=== PATIENT | female | born 1960 | race Hispanic/Latino ===

== ENCOUNTER 2017-10-24 13:02 | Emergency (ER) | payer OTHER ==
[2017-10-24 14:59] LABS: Absolute Lymphocytes (CBC) 1.3 K/uL (0.7-4.9); Absolute Neutrophil 6.9 K/uL (1.8-8.0); Basophils % 0.5 % (0-1.3); Eosinophils % 1.9 % (0-4.4); Hematocrit 39.7 % (36.0-45.0); Lymphocytes % 13.8 % (15.3-44.8); MCV 89.3 fL (80-100); MPV 7.3 fL (7.6-11.3); Monocytes % 10.8 % (3.3-12.3); RBC Red Blood Cell Count 4.45 M/uL (3.86-4.86)
--- NOTE | 2017-10-24 14:59 | RAD REPORT ---
EXAM DESCRIPTION: RAD - Foot Right 2 View - 10/24/2017 2:32 pm CLINICAL HISTORY: Open wound plantar surface of the foot COMPARISON: None. FINDINGS: No fracture, dislocation or periosteal reaction. No acute or destructive bone process. No plantar spur. No air or foreign body in the soft tissues. IMPRESSION: Negative right foot for acute bone or joint finding. No air or foreign body in the soft tissues.
[2017-10-24 15:03] LABS: Protime INR 1.01
[2017-10-24 15:04] LABS: Potassium 3.3 mEq/L (3.6-5.0)
[2017-10-24] MEDS ORDERED: levoFLOXacin 750 MG TAB ONE (15:36)
[2017-10-24] MEDS ORDERED: CLINDAMYCIN 900MG/D5W 900 MG/50 ML BAG IV ONE (15:37)
[2017-10-24] MEDS ORDERED: INSULIN -REGULAR HUMAN 50 UNIT/0.5 ML ML ONE (15:37)
[2017-10-24] MEDS ORDERED: NA CHLORIDE 0.9% 1,000 ML ONE (15:37)
--- NOTE | 2017-10-24 16:02 | ER ---
Nurse's Notes [facility] Name: Loyda Brooks Age: 57 yrs Sex: Female : 1960 Arrival Date: 10/24/2017 Time: 13:09 Bed 14 Private MD: Diagnosis: Cellulitis of right lower limb Presentation: 10/24 13:38 Presenting complaint: Patient states: "I am diabetic and I believe I got glass or lk1 something in my foot. I tried to get it out the last two days. Yesterday blood and pus came out. Now all my toes are black (right foot) and it hurts up into my groin.". Transition of care: patient was not received from another setting of care. Onset of symptoms was October 22, 2017. Care prior to arrival: None. 13:38 Method Of Arrival: Ambulatory lk1 13:38 Acuity: ALDO 3 lk1 Triage Assessment: 13:41 General: Appears in no apparent distress. Behavior is calm, cooperative, appropriate lk1 for age. Pain: Complains of pain in right leg Pain currently is 10 out of 10 on a pain scale. Historical: - Allergies: 13:41 No Known Allergies; lk1 - PMHx: 13:41 Diabetes - IDDM; Rheumatoid Arthritis; Anxiety; Depression; insomnia; High Cholesterol; lk1 - PSHx: 13:41 breast augmentation; lk1 - Immunization history:: Adult Immunizations up to date. - Social history:: Smoking status: Patient/guardian denies using tobacco. Screenin:10 Abuse screen: Denies threats or abuse. Denies injuries from another. Nutritional ch screening: No deficits noted. Tuberculosis screening: No symptoms or risk factors identified. Fall Risk None identified. Assessment: 14:45 Reassessment: Patient appears in no apparent distress at this time. Patient and/or ch family updated on plan of care and expected duration. Pain level reassessed. Patient is alert, oriented x 3, equal unlabored respirations, skin warm/dry/pink. General: Appears in no apparent distress. comfortable, Behavior is calm, cooperative, appropriate for age. Neuro: No deficits noted. Respiratory: Airway is patent Respiratory effort is even, unlabored, Breath sounds are clear bilaterally. GI: No signs and/or symptoms were reported involving the gastrointestinal system. Derm: Skin Skin is pink, warm \\T\\ dry. Skin temperature is warm hot pt has a wound to the bottom of her R foot, with redness around entire foot, and streaking up the leg. 14:45 Musculoskeletal: Circulation, motion, and sensation intact. Capillary refill < 3 ch seconds, in bilateral fingers. toes. 16:10 Reassessment: Patient appears in no apparent distress at this time. Patient and/or ch family updated on plan of care and expected duration. Pain level reassessed. Patient is alert, oriented x 3, equal unlabored respirations, skin warm/dry/pink. Patient states feeling better. Patient states symptoms have improved. Vital Signs: 13:42 BP 142 / 86; Pulse 98; Resp 15; Temp 97.8(TE); Pulse Ox 95% on R/A; Weight 65.77 kg lk1 (R); Height 5 ft. 4 in. (162.56 cm) (R); Pain 10/10; 15:00 BP 161 / 101; Pulse 74; Resp 16; Temp 98.2; Pulse Ox 99% on R/A; Pain 2/10; ch 16:17 BP 132 / 78; Pulse 85; Resp 15; Temp 98.9; Pulse Ox 99% on R/A; Pain 2/10; ch 13:42 Body Mass Index 24.89 (65.77 kg, 162.56 cm) lk1 ED Course: 13:09 Patient arrived in ED. mr 13:40 Triage completed. lk1 13:43 Arm band placed on right wrist. lk1 13:49 Melecio Luna PA is PHCP. cp 13:49 Cliff Springer MD is Attending Physician. cp 14:19 Amberly Preston, MIMI is Primary Nurse. ch 14:32 XRAY Foot RIGHT 2 View In Process Unspecified. EDMS 14:32 X-ray completed. Portable x-ray completed in exam room. kw1 14:45 No apparent distress. Resting quietly. ch 14:45 Patient has correct armband on for positive identification. Placed in gown. Bed in low ch position. Call light in reach. Side rails up X 1. Pulse ox on. NIBP on. 14:45 Inserted saline lock: 20 gauge in right forearm, using aseptic technique. ch 16:18 No provider procedures requiring assistance completed. IV discontinued, intact, ch bleeding controlled, No redness/swelling at site. Pressure dressing applied. Administered Medications: 15:15 Drug: Clindamycin 900 mg Route: IVPB; Infused Over: 30 mins; Site: right antecubital; 16:16 Follow up: IV Status: Completed infusion; IV Intake: 50ml 15:15 Drug: LevaQUIN 750 mg Route: PO; 16:16 Follow up: Response: No adverse reaction; Marked relief of symptoms 15:15 Drug: NS 0.9% 1000 ml Route: IV; Rate: 1 bolus; Site: right antecubital; 16:15 Follow up: IV Status: Completed infusion; IV Intake: 1000ml 15:30 Drug: Insulin Regular Human 10 units {Co-Signature: rs2 (Thu Maria).} Route: IVP; Site: right antecubital; 16:16 Follow up: Response: No adverse reaction; Blood sugar is lowered 16:15 Drug: Potassium Effervescent Tablet 25 mEq Route: PO; 16:16 Follow up: Response: No adverse reaction; Marked relief of symptoms Point of Care Testing: Blood Glucose: 16:10 Blood Glucose: 202 mg/dL; Ranges: Intake: 16:15 IV: 1000ml; Total: 1000ml. 16:16 IV: 50ml; Total: 1050ml. Outcome: 16:01 Discharge ordered by MD. 16:18 Discharged to home ambulatory, with family. 16:18 Condition: stable 16:18 Discharge instructions given to patient, Instructed on discharge instructions, follow up and referral plans. no drinking with medication, medication usage, Demonstrated understanding of instructions, follow-up care, medications, Prescriptions given X 3. 17:02 Patient left the ED. Addendum: 10/27/2017 10:37 Addendum: Culture Results: Positive urine culture. No further action required. Bacteria s s sensitive to prescribed antibiotic. Signatures: Dispatcher [employer] EDMS Amberly Preston RN RN ch Rivera, Maria mr Smirch, Shelby, RN RN ss Page, Corey, PA PA cp Kluge, Leah, RN RN lk1 Samantha Fortune1 Thu Maria rs2 Corrections: (The following items were deleted from the chart) 10/24 16:18 16:10 BP 161 / 101; Pulse 74bpm; Resp 16bpm; Pulse Ox 99% RA; Temp 98.2F; Pain 2/10; ch 16: 15:00 No provider procedures requiring assistance completed. [facility] 16: 15:00 IV discontinued, intact, bleeding controlled, No redness/swelling at site. Pressure dressing applied, ch
--- NOTE | 2017-10-24 16:02 | EDPHYS ---
Physician Documentation [facility] Name: Loyda Brooks Age: 57 yrs Sex: Female : 1960 Arrival Date: 10/24/2017 Time: 13:09 Bed 14 Private MD: ED Physician Cliff Springer HPI: 10/24 14:30 This 57 yrs old Female presents to ER via Ambulatory with complaints of Toe cp Discloration. 14:30 Onset: The symptoms/episode began/occurred 2 day(s) ago. cp 14:30 Associated signs and symptoms: Pertinent negatives: abdominal pain, chest pain, fever, cp shortness of breath. Patient reports she attempted to remove possible piece of glass from ball of right foot several days ago and for past 2 days has noticed redness of toes and foot, swelling. Historical: - Allergies: 13:41 No Known Allergies; lk1 - PMHx: 13:41 Diabetes - IDDM; Rheumatoid Arthritis; Anxiety; Depression; insomnia; High Cholesterol; lk1 - PSHx: 13:41 breast augmentation; lk1 - Immunization history:: Adult Immunizations up to date. - Social history:: Smoking status: Patient/guardian denies using tobacco. ROS: 14:35 Constitutional: Negative for body aches, chills, fever, poor PO intake. cp 14:35 Eyes: Negative for injury, pain, redness, and discharge. cp 14:35 Cardiovascular: Negative for chest pain, palpitations. 14:35 Respiratory: Negative for cough, shortness of breath, wheezing. 14:35 Abdomen/GI: Negative for abdominal pain, nausea, vomiting, and diarrhea. 14:35 : Negative for urinary symptoms. 14:35 Skin: Positive for cellulitis, of the right foot. 14:35 All other systems are negative. Exam: 14:45 Constitutional: The patient appears in no acute distress, alert, awake, non-toxic, well cp developed, well nourished. 14:45 Head/Face: Normocephalic, atraumatic. Eyes: Pupils equal round and reactive to light, cp extra-ocular motions intact. Lids and lashes normal. Conjunctiva and sclera are non-icteric and not injected. Cornea within normal limits. Periorbital areas with no swelling, redness, or edema. ENT: Nares patent. No nasal discharge, no septal abnormalities noted. Tympanic membranes are normal and external auditory canals are clear. Oropharynx with no redness, swelling, or masses, exudates, or evidence of obstruction, uvula midline. Mucous membranes moist. Chest/axilla: Normal chest wall appearance and motion. Nontender with no deformity. No lesions are appreciated. Cardiovascular: Regular rate and rhythm with a normal S1 and S2. No gallops, murmurs, or rubs. Normal PMI, no JVD. No pulse deficits. Respiratory: Lungs have equal breath sounds bilaterally, clear to auscultation and percussion. No rales, rhonchi or wheezes noted. No increased work of breathing, no retractions or nasal flaring. Abdomen/GI: Soft, non-tender, with normal bowel sounds. No distension or tympany. No guarding or rebound. No evidence of tenderness throughout. 14:45 Skin: cellulitis, that is moderate, well demarcated, on the right foot, superficial open wound noted ball of right foot. Vital Signs: 13:42 BP 142 / 86; Pulse 98; Resp 15; Temp 97.8(TE); Pulse Ox 95% on R/A; Weight 65.77 kg lk1 (R); Height 5 ft. 4 in. (162.56 cm) (R); Pain 10/10; 15:00 BP 161 / 101; Pulse 74; Resp 16; Temp 98.2; Pulse Ox 99% on R/A; Pain 2/10; ch 16:17 BP 132 / 78; Pulse 85; Resp 15; Temp 98.9; Pulse Ox 99% on R/A; Pain 2/10; ch 13:42 Body Mass Index 24.89 (65.77 kg, 162.56 cm) lk1 MDM: 13:49 Patient medically screened. cp 16:00 Data reviewed: vital signs, nurses notes, lab test result(s), radiologic studies, plain cp films, and as a result, I will discharge patient. 16:00 Test interpretation: by ED physician or midlevel provider: plain radiologic studies. cp Counseling: I had a detailed discussion with the patient and/or guardian regarding: the historical points, exam findings, and any diagnostic results supporting the discharge/admit diagnosis, lab results, radiology results, the need for outpatient follow up, a family practitioner, to return to the emergency department if symptoms worsen or persist or if there are any questions or concerns that arise at home. 10/24 14:17 Order name: CBC with Diff; Complete Time: 15:01 10/24 14:17 Order name: BMP; Complete Time: 15:11 10/24 16:02 Interpretation: Normal except: K 3.3; CL 95; GLUC 374; GFR 69. cp 10/24 14:17 Order name: Blood Culture Adult (2) cp 10/24 14:17 Order name: Wound Culture cp 10/24 14:17 Order name: PT-INR; Complete Time: 15:11 cp 10/24 14:17 Order name: Ptt, Activated; Complete Time: 15:11 10/24 14:17 Order name: XRAY Foot RIGHT 2 View; Complete Time: 15:01 10/24 14:17 Order name: IV; Complete Time: 15:10 10/24 15:02 Order name: Wound dressing: please clean and dress wound, outline area of erythema; cp Complete Time: 16:07 Administered Medications: 15:15 Drug: Clindamycin 900 mg Route: IVPB; Infused Over: 30 mins; Site: right antecubital; ch 16:16 Follow up: IV Status: Completed infusion; IV Intake: 50ml ch 15:15 Drug: LevaQUIN 750 mg Route: PO; ch 16:16 Follow up: Response: No adverse reaction; Marked relief of symptoms ch 15:15 Drug: NS 0.9% 1000 ml Route: IV; Rate: 1 bolus; Site: right antecubital; ch 16:15 Follow up: IV Status: Completed infusion; IV Intake: 1000ml ch 15:30 Drug: Insulin Regular Human 10 units {Co-Signature: rs2 (Thu Maria).} Route: IVP; Site: right antecubital; 16:16 Follow up: Response: No adverse reaction; Blood sugar is lowered ch 16:15 Drug: Potassium Effervescent Tablet 25 mEq Route: PO; ch 16:16 Follow up: Response: No adverse reaction; Marked relief of symptoms ch Point of Care Testing: Blood Glucose: 16:10 Blood Glucose: 202 mg/dL; ch Ranges: Critical Glucose Levels:Adult <50 mg/dl or >400 mg/dl <40 mg/dl or >180 mg/dl Disposition: 17:11 Co-signature as Attending Physician, Cliff Springer MD. rn Disposition: 10/24/17 16:01 Discharged to Home. Impression: Cellulitis of right lower limb. - Condition is Stable. - Discharge Instructions: Cellulitis. - Prescriptions for Clindamycin HCl 300 mg Oral Capsule - take 1 capsule by ORAL route every 6 hours for 10 days; 40 capsule. Levaquin 750 mg Oral Tablet - take 1 tablet by ORAL route once daily for 10 days; 10 tablet. Tramadol 50 mg Oral Tablet - take 1 tablet by ORAL route every 8 hours as needed; 12 tablet. - Medication Reconciliation Form, Thank You Letter, Antibiotic Education, Prescription Opioid Use form. - Follow up: Private Physician; When: Tomorrow; Reason: Wound Recheck. - Problem is new. - Symptoms have improved. Signatures: Dispatcher [employer] Amberly Beltran, RN Cliff Bardales ch, MD MD rn Page, Corey, PA PA cp Kluge, Leah, RN RN lk1 Thu Maria rs2
== END 2017-10-24 17:02 | disposition home or self-care (01) ==
LOC: ER 13:02
DX: Z98.82 Breast implant status; E11.9 Type 2 diabetes mellitus without complications; L03.115 Cellulitis of right lower limb
CPT/HCPCS: 36415; 80048; 82962; 85025; 85610; 85730; 87040; 87070; 87077; 87186; 87205; 96361; 96365; 96375; 99284; J7030

== ENCOUNTER 2018-10-22 11:57 | Emergency (ER) | payer OTHER ==
[2018-10-22] MEDS ORDERED: MORPHINE 4 MG/ML SYR ONE (14:53)
[2018-10-22] MEDS ORDERED: NA CHLORIDE 0.9% 1,000 ML ONE (14:53)
[2018-10-22] MEDS ORDERED: ONDANSETRON 4 MG/2 ML VIAL ONE (14:53)
--- NOTE | 2018-10-22 15:30 | RAD REPORT ---
EXAM DESCRIPTION: CT - Spine Lumbar Wo Con - 10/22/2018 3:21 pm CLINICAL HISTORY: Radiculopathy. PAIN COMPARISON: No comparisons TECHNIQUE: Axial noncontrast CT imaging of the lumbar spine was performed with coronal and sagittal re-formatted images. All CT scans are performed using dose optimization technique as appropriate and may include automated exposure control or mA/KV adjustment according to patient size. FINDINGS: No acute lumbar spine fracture seen. No aggressive marrow pattern or malalignment. Paraspinal tissues are normal in thickness. No paraspinal abscess or hematoma seen. Mild degenerative anterolisthesis of L4 on 5 is seen with prominent facet hypertrophy bilaterally. Th ere is bulging of disc material noted and probable significant central spinal canal stenosis at this level. IMPRESSION: No acute lumbar spine finding is suspected. Central spinal canal stenosis is suspected at L4-5.
--- NOTE | 2018-10-22 15:46 | RAD REPORT ---
EXAM DESCRIPTION: RAD - Femur Left - 10/22/2018 3:38 pm CLINICAL HISTORY: PAIN COMPARISON: No comparisons FINDINGS: No bone or joint abnormality is detected.
--- NOTE | 2018-10-22 15:47 | RAD REPORT ---
EXAM DESCRIPTION: RAD - Foot Left 3 View - 10/22/2018 3:38 pm CLINICAL HISTORY: PAIN COMPARISON: No comparisons FINDINGS: Degenerative changes are present involving the second and third tarsal metatarsal joints. PIP joint of the fourth toe shows moderate degenerative change. No acute fracture or dislocation seen .
--- NOTE | 2018-10-22 15:47 | RAD REPORT ---
EXAM DESCRIPTION: RAD - Hip Left 2 View - 10/22/2018 3:38 pm CLINICAL HISTORY: PAIN COMPARISON: No comparisons FINDINGS: Mild arthritic changes involve the left hip. No fracture, dislocation or AVN.
--- NOTE | 2018-10-22 15:48 | RAD REPORT ---
EXAM DESCRIPTION: RAD - Pelvis - 10/22/2018 3:38 pm CLINICAL HISTORY: PAIN COMPARISON: No comparisons FINDINGS: Mild arthritic changes are present in both hips. No fracture or dislocation seen. No aggre ssive marrow lesion.
--- NOTE | 2018-10-22 16:05 | ER ---
Nurse's Notes [facility] Name: Loyda Brooks Age: 58 yrs Sex: Female : 1960 Arrival Date: 10/22/2018 Time: 12:00 Bed 24 Private MD: Diagnosis: Low back pain;Pain in right hip;Fall due to bumping against object;Spinal stenosis;Spinal stenosis, lumbar region;Type 2 diabetes mellitus;Urinary tract infection, site not specified Presentation: 10/22 12:04 Presenting complaint: Patient states: "I fell off my mother's bed about 10 days ago". aa5 Pt c/o lower back pain and left hip pain. Transition of care: patient was not received from another setting of care. Onset of symptoms was September 2018. Risk Assessment: Do you want to hurt yourself or someone else? Patient reports no desire to harm self or others. Initial Sepsis Screen: Does the patient meet any 2 criteria? No. Patient's initial sepsis screen is negative. Does the patient have a suspected source of infection? No. Patient's initial sepsis screen is negative. Care prior to arrival: None. 12:04 Method Of Arrival: Ambulatory aa5 12:04 Acuity: ALDO 4 aa5 Triage Assessment: 12:26 General: Appears in no apparent distress. Behavior is calm, cooperative. ls4 Musculoskeletal: Circulation, motion, and sensation intact. Capillary refill < 3 seconds, Range of motion:. Historical: - Allergies: 12:05 No Known Allergies; aa5 - PMHx: 12:05 Anxiety; Depression; Diabetes - IDDM; High Cholesterol; insomnia; Rheumatoid Arthritis; aa5 - PSHx: 12:05 breast augmentation; aa5 - Immunization history:: Flu vaccine is up to date. - Social history:: Smoking status: Patient uses tobacco products, 1-2 cigarettes a day. - Ebola Screening: : No symptoms or risks identified at this time. - Family history:: not pertinent. Screenin:25 Abuse screen: Denies threats or abuse. Denies injuries from another. Nutritional ls4 screening: No deficits noted. Tuberculosis screening: No symptoms or risk factors identified. Fall Risk None identified. Assessment: 12:53 Pain: Complains of pain in left hip Pain currently is 10 out of 10 on a pain scale. ls4 Neuro: Level of Consciousness is awake, alert, Oriented to person, place, time, situation, Reports paresthesias in right foot, left foot, right leg and left leg chronic. Cardiovascular: Denies chest pain, diaphoresis, fatigue, lightheadedness, nausea, palpitations, Capillary refill < 3 seconds. Respiratory: Airway is patent Respiratory effort is even, unlabored. Musculoskeletal: Reports pain in left iliac crest and left hip. 15:22 Reassessment: patient sent to ct scan. mg2 16:10 Reassessment: patient for discharge after the blood test results are back. mg2 17:28 Reassessment: Patient appears in no apparent distress at this time. mg2 Vital Signs: 12:06 BP 147 / 88; Pulse 93; Resp 16 S; Temp 98.4(TE); Pulse Ox 98% on R/A; Weight 68.04 kg aa5 (R); Height 5 ft. 4 in. (162.56 cm) (R); Pain 10/10; 15:00 BP 133 / 78; Pulse 89; Resp 18; Pulse Ox 100% on R/A; Pain 4/10; mg2 17:28 BP 140 / 78; Pulse 80; Resp 18; Pulse Ox 100% on R/A; Pain 2/10; mg2 12:06 Body Mass Index 25.75 (68.04 kg, 162.56 cm) aa5 ED Course: 12:00 Patient arrived in ED. mr 12:04 Arm band placed on. aa5 12:05 Triage completed. aa5 12:24 Libby Tapia, RN is Primary Nurse. ls4 12:25 Patient has correct armband on for positive identification. Bed in low position. Call ls4 light in reach. Side rails up X 1. 12:25 No provider procedures requiring assistance completed. Inserted saline lock: 22 gauge ls4 in right forearm, using aseptic technique. 13:16 Melecio Dubois MD is Attending Physician. danie 14:54 Radiology exam delayed due to nurse in the room at this time. vr 15:22 CT Lumbar Spine Wo Con In Process Unspecified. EDMS 15:39 XRAY Pelvis In Process Unspecified. EDMS 15:39 Hip Left 2 View XRAY In Process Unspecified. EDMS 15:39 Femur Left XRAY In Process Unspecified. EDMS 15:39 Foot Left 3 View In Process Unspecified. EDMS 17:28 IV discontinued, intact, bleeding controlled, No redness/swelling at site. Pressure mg2 dressing applied. Administered Medications: 15:04 Drug: NS 0.9% 1000 ml Route: IV; Rate: 1 bolus; Site: right forearm; ls4 15:04 Drug: morphine 4 mg Route: IVP; Site: right forearm; ls4 16:11 Follow up: Response: No adverse reaction; Marked relief of symptoms mg2 15:04 Drug: Zofran 4 mg Route: IVP; Site: right forearm; ls4 16:11 Follow up: Response: No adverse reaction; Marked relief of symptoms mg2 17:02 Drug: Cipro 500 mg Route: PO; mg2 17:27 Follow up: Response: No adverse reaction; Medication administered at discharge. mg2 17:03 Drug: Rocephin - (cefTRIAXone) 1 grams Route: IVPB; Infused Over: 30 mins; Site: right mg2 forearm; 17:27 Follow up: Response: No adverse reaction; Medication administered at discharge.; IV mg2 Status: Completed infusion Outcome: 16:04 Discharge ordered by MD. helton 17:29 Discharged to home via wheelchair. mg2 17:29 Condition: stable 17:29 Discharge instructions given to family, Instructed on discharge instructions, follow up and referral plans. medication usage, Demonstrated understanding of instructions, follow-up care, medications, Prescriptions given X 4. 17:30 Patient left the ED. mg2 Addendum: 10/24/2018 08:57 Addendum: Culture Results: Positive urine culture. No further action required. Bacteria s s sensitive to prescribed antibiotic. Signatures: Dispatcher [employer] EDAR Melecio Dubois MD MD cha Rivera, Mary mr CastellonMichelle, RN RN aa5 Rosalia Godoy RN RN ss Davis, Victoria vr Gardose, Michele, RN RN mg2 Libby Tapia RN RN ls4 Corrections: (The following items were deleted from the chart) 10/22 17:28 12:25 Inserted ls4 mg2
--- NOTE | 2018-10-22 16:05 | EDPHYS ---
Physician Documentation [facility] Name: Loyda Brooks Age: 58 yrs Sex: Female : 1960 Arrival Date: 10/22/2018 Time: 12:00 Bed 24 Private MD: ED Physician Melecio Dubois HPI: 10/22 14:36 This 58 yrs old Female presents to ER via Ambulatory with complaints of Back danie Pain. 14:36 The patient presents with pain that is acute. The symptoms are located in the low back, danie L1, L2, L3, L4 and L5. Onset: The symptoms/episode began/occurred 10 day(s) ago. The pain does not radiate. Associated signs and symptoms: The patient has no apparent associated signs or symptoms. Modifying factors: The patient symptoms are alleviated by remaining still, the patient symptoms are aggravated by any movement. Severity of symptoms: At their worst the symptoms were mild, moderate, in the emergency department the symptoms are unchanged. Historical: - Allergies: 12:05 No Known Allergies; aa5 - PMHx: 12:05 Anxiety; Depression; Diabetes - IDDM; High Cholesterol; insomnia; Rheumatoid Arthritis; aa5 - PSHx: 12:05 breast augmentation; aa5 - Immunization history:: Flu vaccine is up to date. - Social history:: Smoking status: Patient uses tobacco products, 1-2 cigarettes a day. - Ebola Screening: : No symptoms or risks identified at this time. - Family history:: not pertinent. ROS: 14:36 Constitutional: Negative for fever, chills, and weight loss, Eyes: Negative for injury, danie pain, redness, and discharge, ENT: Negative for injury, pain, and discharge, Neck: Negative for injury, pain, and swelling, Cardiovascular: Negative for chest pain, palpitations, and edema, Respiratory: Negative for shortness of breath, cough, wheezing, and pleuritic chest pain, Abdomen/GI: Negative for abdominal pain, nausea, vomiting, diarrhea, and constipation, : Negative for injury, bleeding, discharge, and swelling, Skin: Negative for injury, rash, and discoloration, Neuro: Negative for headache, weakness, numbness, tingling, and seizure, Psych: Negative for depression, anxiety, suicide ideation, homicidal ideation, and hallucinations, Allergy/Immunology: Negative for hives, rash, and allergies, Endocrine: Negative for neck swelling, polydipsia, polyuria, polyphagia, and marked weight changes, Hematologic/Lymphatic: Negative for swollen nodes, abnormal bleeding, and unusual bruising. 14:36 Back: Positive for injury or acute deformity, pain at rest, pain with movement, of the left low back. Exam: 14:36 Constitutional: This is a well developed, well nourished patient who is awake, alert, danie and in no acute distress. Head/Face: Normocephalic, atraumatic. Eyes: Pupils equal round and reactive to light, extra-ocular motions intact. Lids and lashes normal. Conjunctiva and sclera are non-icteric and not injected. Cornea within normal limits. Periorbital areas with no swelling, redness, or edema. ENT: Nares patent. No nasal discharge, no septal abnormalities noted. Tympanic membranes are normal and external auditory canals are clear. Oropharynx with no redness, swelling, or masses, exudates, or evidence of obstruction, uvula midline. Mucous membranes moist. Neck: Trachea midline, no thyromegaly or masses palpated, and no cervical lymphadenopathy. Supple, full range of motion without nuchal rigidity, or vertebral point tenderness. No Meningismus. Chest/axilla: Normal chest wall appearance and motion. Nontender with no deformity. No lesions are appreciated. Cardiovascular: Regular rate and rhythm with a normal S1 and S2. No gallops, murmurs, or rubs. Normal PMI, no JVD. No pulse deficits. Respiratory: Lungs have equal breath sounds bilaterally, clear to auscultation and percussion. No rales, rhonchi or wheezes noted. No increased work of breathing, no retractions or nasal flaring. Abdomen/GI: Soft, non-tender, with normal bowel sounds. No distension or tympany. No guarding or rebound. No evidence of tenderness throughout. Female : Normal external genitalia. Skin: Warm, dry with normal turgor. Normal color with no rashes, no lesions, and no evidence of cellulitis. Neuro: Awake and alert, GCS 15, oriented to person, place, time, and situation. Cranial nerves II-XII grossly intact. Motor strength 5/5 in all extremities. Sensory grossly intact. Cerebellar exam normal. Normal gait. Psych: Awake, alert, with orientation to person, place and time. Behavior, mood, and affect are within normal limits. 14:36 Back: ROM is painful, normal spinal alignment noted, CVA tenderness, is absent, vertebral tenderness, is appreciated at L1, L2, L3, L4 and L5, muscle spasm, is appreciated in the left low back. Vital Signs: 12:06 BP 147 / 88; Pulse 93; Resp 16 S; Temp 98.4(TE); Pulse Ox 98% on R/A; Weight 68.04 kg aa5 (R); Height 5 ft. 4 in. (162.56 cm) (R); Pain 10/10; 15:00 BP 133 / 78; Pulse 89; Resp 18; Pulse Ox 100% on R/A; Pain 4/10; mg2 17:28 BP 140 / 78; Pulse 80; Resp 18; Pulse Ox 100% on R/A; Pain 2/10; mg2 12:06 Body Mass Index 25.75 (68.04 kg, 162.56 cm) aa5 MDM: 13:16 Patient medically screened. [facility] 14:38 Data reviewed: vital signs, nurses notes, lab test result(s), EKG, radiologic studies, [facility] CT scan, plain films. 10/22 14:35 Order name: Basic Metabolic Panel [facility] 10/22 14:35 Order name: CBC with Diff [facility] 10/22 14:35 Order name: Creatinine for Radiology; Complete Time: 15:59 [facility] 10/22 14:35 Order name: Type And Screen [facility] 10/22 14:35 Order name: Basic Metabolic Panel; Complete Time: 15:59 [facility] 10/22 16:34 Order name: Urine Culture [facility] 10/22 14:35 Order name: XRAY Pelvis; Complete Time: 15:59 [facility] 10/22 14:35 Order name: Hip Left 2 View XRAY; Complete Time: 15:59 [facility] 10/22 14:35 Order name: Femur Left XRAY; Complete Time: 15:59 [facility] 10/22 14:35 Order name: CT Lumbar Spine Wo Con; Complete Time: 15:36 [facility] 10/22 15:34 Order name: Foot Left 3 View; Complete Time: 15:59 [facility] 10/22 16:35 Order name: CBC Smear Scan [facility] 10/22 16:47 Order name: Urine Dipstick--Ancillary (enter results) 10/22 16:47 Order name: Urine --Ancillary (enter results) 10/22 14:35 Order name: Labs collected and sent; Complete Time: 15:07 [facility] 10/22 16:02 Order name: Urine Dipstick-Ancillary (obtain specimen); Complete Time: 17:00 [facility] Administered Medications: 15:04 Drug: NS 0.9% 1000 ml Route: IV; Rate: 1 bolus; Site: right forearm; ls4 15:04 Drug: morphine 4 mg Route: IVP; Site: right forearm; ls4 16:11 Follow up: Response: No adverse reaction; Marked relief of symptoms mg2 15:04 Drug: Zofran 4 mg Route: IVP; Site: right forearm; ls4 16:11 Follow up: Response: No adverse reaction; Marked relief of symptoms mg2 17:02 Drug: Cipro 500 mg Route: PO; mg2 17:27 Follow up: Response: No adverse reaction; Medication administered at discharge. mg2 17:03 Drug: Rocephin - (cefTRIAXone) 1 grams Route: IVPB; Infused Over: 30 mins; Site: right mg2 forearm; 17:27 Follow up: Response: No adverse reaction; Medication administered at discharge.; IV mg2 Status: Completed infusion Disposition: 10/22/18 16:04 Discharged to Home. Impression: Low back pain, Pain in right hip, Fall due to bumping against object, Spinal stenosis, Spinal stenosis, lumbar region, Type 2 diabetes mellitus, Urinary tract infection, site not specified. - Condition is Stable. - Discharge Instructions: Back Pain, Adult, Dysuria, Musculoskeletal Pain, Urinary Tract Infection, Adult, Back Injury Prevention, [id number], Urinary Tract Infection, Adult, Xvej-to-[id number], Back Pain, Adult, Xqlk-qm-[id number], Fall Prevention in the Home, Gngw-uf-[id number], Hip Pain. - Prescriptions for Skelaxin 800 mg Oral Tablet - take 1 tablet by ORAL route every 6 hours As needed; 28 tablet. Tylenol- Codeine #3 300-30 mg Oral Tablet - take 2 tablets by ORAL route every 6 hours As needed; 26 tablet. Motrin IB 200 mg Oral Tablet - take 2 tablet by ORAL route every 6 hours As needed as needed with food; 30 tablet. Cipro 250 mg Oral Tablet - take 1 tablet by ORAL route every 12 hours; 14 tablet. - Medication Reconciliation Form, Thank You Letter, Antibiotic Education, Prescription Opioid Use form. - Follow up: Private Physician; When: 2 - 3 days; Reason: Recheck today's complaints, Continuance of care, Re-evaluation by your physician. - Problem is new. - Symptoms have improved. Signatures: Dispatcher [employer] Melecio Maria MD MD cha Calderon, Audri, RN RN aa5 Bashir Falcon RN RN mg2 Libby Tapia RN RN ls4 Corrections: (The following items were deleted from the chart) 16:07 16:04 10/22/2018 16:04 Discharged to Home. Impression: Low back pain; Pain in right danie hip; Fall due to bumping against object; Spinal stenosis; Spinal stenosis, lumbar region. Condition is Stable. Forms are Medication Reconciliation Form, Thank You Letter, Antibiotic Education, Prescription Opioid Use. Follow up: Private Physician; When: 2 - 3 days; Reason: Recheck today's complaints, Continuance of care, Re-evaluation by your physician. Problem is new. Symptoms have improved. [facility] 16:36 16:07 10/22/2018 16:04 Discharged to Home. Impression: Low back pain; Pain in right danie hip; Fall due to bumping against object; Spinal stenosis; Spinal stenosis, lumbar region; Type 2 diabetes mellitus. Condition is Stable. Discharge Instructions: Back Pain, Adult, Musculoskeletal Pain, Back Injury Prevention, [id number], Back Pain, Adult, Vngo-wz-Ozzx, Fall Prevention in the Home, Uftk-[id number]-Yyas, Hip Pain. Prescriptions for Skelaxin 800 mg Oral Tablet - take 1 tablet by ORAL route every 6 hours As needed; 28 tablet, Tylenol-Codeine #3 300-30 mg Oral Tablet - take 2 tablets by ORAL route every 6 hours As needed; 26 tablet, Motrin IB 200 mg Oral Tablet - take 2 tablet by ORAL route every 6 hours As needed as needed with food; 30 tablet. and Forms are Medication Reconciliation Form, Thank You Letter, Antibiotic Education, Prescription Opioid Use. Follow up: Private Physician; When: 2 - 3 days; Reason: Recheck today's complaints, Continuance of care, Re-evaluation by your physician. Problem is new. Symptoms have improved. [facility] 17:30 16:36 10/22/2018 16:04 Discharged to Home. Impression: Low back pain; Pain in right mg2 hip; Fall due to bumping against object; Spinal stenosis; Spinal stenosis, lumbar region; Type 2 diabetes mellitus; Urinary tract infection, site not specified. Condition is Stable. Discharge Instructions: Back Pain, Adult, Musculoskeletal Pain, Back Injury Prevention, Ymea-im-Ryzt, Back Pain, Adult, Jtmp-[id number]-Yvig, Fall Prevention in the Home, Vhfm-ki-[id number], Hip Pain. Prescriptions for Skelaxin 800 mg Oral Tablet - take 1 tablet by ORAL route every 6 hours As needed; 28 tablet, Tylenol-Codeine #3 300-30 mg Oral Tablet - take 2 tablets by ORAL route every 6 hours As needed; 26 tablet, Motrin IB 200 mg Oral Tablet - take 2 tablet by ORAL route every 6 hours As needed as needed with food; 30 tablet. and Forms are Medication Reconciliation Form, Thank You Letter, Antibiotic Education, Prescription Opioid Use. Follow up: Private Physician; When: 2 - 3 days; Reason: Recheck today's complaints, Continuance of care, Re-evaluation by your physician. Problem is new. Symptoms have improved. danie
[2018-10-22 16:31] LABS: Absolute Lymphocytes (CBC) 2.4 K/uL (0.7-4.9); Absolute Monocytes 0.9 K/uL (0.1-1.3); Absolute Neutrophil 9.1 K/uL (1.8-8.0); Basophils % 0.5 % (0-1.3); Eosinophils % 2.8 % (0-4.4); Hematocrit 41.6 % (36.0-45.0); Lymphocytes % 18.4 % (15.3-44.8); MPV 7.8 fL (7.6-11.3); Monocytes % 6.7 % (3.3-12.3); RBC Red Blood Cell Count 4.58 M/uL (3.86-4.86)
[2018-10-22 16:54] LABS: Urine Blood NEGATIVE (NEG); Urine Glucose NEGATIVE (NEG); Urine Protein TRACE (NEG); Urine Specific Gravity 1.015 (1.005-1.030)
[2018-10-22] MEDS ORDERED: CIPROFLOXACIN HCL 500 MG TAB ONE (17:11)
[2018-10-22] MEDS ORDERED: CEFTRIAXONE/SWI 1gm 1 GM/10 ML SYR ONE (17:11)
[2018-10-22 17:43] LABS: Blood Morphology Comment NOT SEEN (NOT SEEN); Platelet Estimate INCR; Urine White Blood Cell Casts OK
== END 2018-10-22 17:30 | disposition home or self-care (01) ==
LOC: ER 11:57
DX: M48.061 Spinal stenosis, lumbar region without neurogenic claudication (principal); M25.551 Pain in right hip; N39.0 Urinary tract infection, site not specified; E11.9 Type 2 diabetes mellitus without complications; W18.00XA Striking against unspecified object with subsequent fall, initial encounter; Y93.9 Activity, unspecified; Y92.9 Unspecified place or not applicable; Z72.0 Tobacco use; Z98.82 Breast implant status
CPT/HCPCS: 36415; 72131; 72170; 80048; 81003; 81025; 85025; 86850; 86900; 86901; 87077; 87086; 87088; 87186; 96365; 96375; 99284; J0696; J2405; J7030